=== PATIENT | male | born 1965 | race Caucasian/White ===

== ENCOUNTER → 2017-08-25 | Outpatient (CLI) | payer OTHER ==
[~2017-08-25] MED LIST: INDERAL10 MG PO; Z.0.VALIUM10 MG PO
--- NOTE | 2017-08-25 14:53 | Diagnostic Imaging Report ---
History: Fell off ladder Comparison studies: None Technique: Sagittal, coronal and axial T2 , sagittal T1 and IR, axial spin density oblique. Intravenous contrast: None Findings: Number of lumbar vertebral bodies:5 Alignment: Normal lordosis.Minimal dextroscoliosis at L3, likely positional. Soft tissues: No T2 hyperintense inflammatory changes. 1.5 cm right cortical renal cyst at the interpolar region Paraspinal muscles: No signal abnormalities. No atrophy. Lower thoracic cord:Normal in signal and morphology. The tip of the conus is at L1. Cauda equina: No masses. No arachnoiditis. Vertebrae: Endplate edema at L4-L5 without significant narrowing of the intervertebral space. The remaining bone marrow is normal in appearance. No compression fractures, infection or neoplasm. Degenerative changes: L1-L2: Patent canal and foramina . L2-L3: Mild facet hypertrophy with patent canal and foramina. L3-L4: Mild disc degeneration with loss of T2 signal. Mild diffuse disc bulge and mild facet hypertrophy without significant canal stenosis and mild bilateral foraminal narrowing. L4-L5: Mildly increased T2 signal and intervertebral space without significant narrowing. Endplate edema is noted with associated small Schmorl nodes. Diffuse disc bulge and mild facet hypertrophy results in mild canal stenosis and mild bilateral foraminal narrowing. Trace of fluid at the bilateral facet joints and mild periarticular edema. Posteriorly projecting subcentimeter synovial cysts arising from the left facet joint. L5-S1: Mild diffuse disc bulge, mild right and moderate left facet hypertrophy results in no significant canal stenosis or foraminal narrowing. Additional findings: Mild degenerative changes of the SI joint IMPRESSION: Endplate edema at L4-L5 without significant degenerative changes of the intervertebral space, this could be related to edema surrounding the Schmorl nodes or early spondylodiscitis, recommend further evaluation with contrast images. Mild to moderate facet hypertrophy at the lower lumbar spine with synovitis changes at L4-L5. Mild bilateral foraminal narrowing at L3-L4 and L4-L5 secondary to degenerative changes. Other mild degenerative changes as described above. Signed by: DR Jarrell Cortez M.D. on 08/25/2017 2:49 PM
== END ==
LOC: MRI 11:02
PROVIDERS: ATTEND Family Medicine
DX: G89.21 Chronic pain due to trauma (principal)
CPT/HCPCS: 72148

== ENCOUNTER 2024-11-01 21:06 | Emergency (ER) | payer BC ==
[~2024-11-01] VITALS: Ht 188 cm; Wt 88.5 kg
[~2024-11-01 21:06] MED LIST changes: +AMLODIPINE BESYL5 MG PO; +BUPROPION XL150 MG PO; +CIALIS5 MG PO; +CRESTOR10 MG PO; +FLECAINIDE ACE100 MG PO; +METOPROLOL SUCC50 MG PO; +MORPHINE PO; +MORPHINE SULFAT30 M2 PO; +PANTOPRAZOLE SO40 MG PO; +SOMA350 MG PO; +SYNTHROID50 MCG PO; +TESTOSTERO100 MG/1 M IM; +THC PO
[2024-11-01 21:10] VITALS: TEMP 97.6
[2024-11-01 21:57] LABS: INR 0.89; PROTHROMBIN TIME 12.6 seconds (11.9-14.5)
[2024-11-01 21:58] LABS: PARTIAL THROMBOPLASTIN TIME 29.5 seconds (23.8-35.5)
[2024-11-01 22:07] LABS: ALBUMIN 4.4 g/dL (3.5-5.0); ALBUMIN/GLOBULIN RATIO 1.5 (0.8-2.0); BILIRUBIN,TOTAL 0.5 mg/dL (0.2-1.2); CALCIUM 9.2 mg/dL (8.4-10.2); CREATININE, SERUM 1.08 mg/dL (0.72-1.25); TOTAL PROTEIN 7.3 g/dL (6.5-8.1)
[2024-11-01] MEDS ORDERED: IOPAMIDOL 370 MG/ML 100 ML INFUS..BTL INJ ONE (22:14)
[2024-11-01] MEDS ORDERED: SODIUM CHLORIDE 0.9% 100 ML ONE (22:14)
[2024-11-01 22:20] LABS: BASOPHILS % 0.4 % (0.0-1.0); EOSINOPHILS # (AUTO) 0.1 (0.0-0.4); EOSINOPHILS % 1.4 % (0.0-6.0); HEMATOCRIT 47.3 % (38.2-49.6); HEMOGLOBIN 16.1 g/dL (14.0-18.0); LYMPHOCYTES # (AUTO) 1.4 (1.0-3.2); LYMPHOCYTES % 16.7 % (18.0-39.1); MEAN CORPUSCULAR HEMOGLOBIN 29.1 pg (28-32); MEAN CORPUSCULAR VOLUME 85.5 fL (81-99); MONOCYTES # (AUTO) 0.7 (0.2-0.8); MONOCYTES % 8.2 % (4.4-11.3); NEUTROPHILS # (AUTO) 6.2 (2.1-6.9); NEUTROPHILS % 73.1 % (38.7-80.0); PLATELET COUNT 184 x10e3/uL (140-360); RED BLOOD COUNT 5.53 x10e6/uL (4.3-5.7); RED CELL DISTRIBUTION WIDTH 12.7 % (11.7-14.4); WHITE BLOOD COUNT 8.42 x10e3/uL (4.8-10.8)
[2024-11-01] MEDS: ONDANSETRON HCL INJ 2MG/ML 2ML 2 MG/ML VIAL IV STA (22:25)
[2024-11-01 23:33] VITALS: PULSE 63; RESP 18
[2024-11-02] MEDS ORDERED: ONDANSETRON ODT4 MG SL (00:13)
[2024-11-02 00:33] VITALS: BP 137/84; O2SAT 96
== END 2024-11-02 00:35 | disposition home or self-care (01) ==
LOC: ER 21:44
DX: R10.13 Epigastric pain (principal); R11.2 Nausea with vomiting, unspecified; F41.0 Panic disorder [episodic paroxysmal anxiety]; Z85.01 Personal history of malignant neoplasm of esophagus
CPT/HCPCS: 36415; 74174; 80053; 83690; 85025; 85610; 85730; 93005; 99284; J2405; J2470; J7050; Q9967